=== PATIENT | female | born 1960 | race American Indian/Alaskan Native ===

== ENCOUNTER 2019-01-15 22:37 | Emergency (ER) | payer MEDICAID ==
[2019-01-15 22:46] VITALS: TEMP 97.9
--- NOTE | 2019-01-16 00:16 | C.PDOC ---
History Of Present Illness 58 year old female brought in via EMS from care home for substance ingestion. Patient was noted by care home staff to be taking some sort of medication. When questioned patient denies taking anything, any drug use, or drinking. She repo rts no complaints at this time, however, she appears very sleepy but arousable to voice. Time Seen by Provider: 01/15/19 22:41 Chief Complaint (Nursing): Substance Abuse History Per: Patient, EMS History/Exam Limitations: no limitations Onset/Duration Of Symptoms: Hrs Current Symptoms Are (Timing): Still Present Modifying Factor(s): Other (Substance abuse) Recent travel outside of the [place]: No Past Medical History Reviewed: Historical Data, Nursing Documentation, Vital Signs Vital Signs: Last Vital Signs Temp 97.9 F 01/15/19 22:45 Pulse 50 L 01/15/19 22:45 Resp BP 128/83 01/15/19 22:45 Pulse Ox 93 L 01/15/19 22:45 Family History: States: Unknown Family Hx - Social History Hx Alcohol Use: Yes Hx Substance Use: Yes Review Of Systems Constitutional: Negative for: Fever, Chills Cardiovascular: Negative for: Chest Pain, Palpitations Respiratory: Negative for: Cough, Shortness of Breath Gastrointestinal: Negative for: Nausea, Vomiting Genitourinary: Negative for: Dysuria, Hematuria Musculoskeletal: Negative for: Back Pain Skin: Negative for: Rash Neurological: Negative for: Weakness, Numbness Physical Exam - Physical Exam Appears: Non-toxic, Other (Sleepy) Skin: Normal Color, Warm Head: Atraumatic, Normacephalic Eye(s): bilateral: Other (4mm equally reactive bilaterally) Oral Mucosa: Moist Neck: Normal, Supple Chest: Symmetrical, No Tenderness Cardiovascular: Rhythm Regular Respiratory: Normal Breath Sounds, No Rales, No Rhonchi, No Wheezing Gastrointestinal/Abdominal: Soft, No Tenderness Neurological/Psych: Other (Sleepy but arousable to voice, slurred speech, unable to assess if oriented since she does not answer all questions) ED Course And Treatment - Laboratory Results Result Diagrams: 01/16/19 00:34 01/16/19 00:34 O2 Sat by Pulse Oximetry: 93 (room air) Medical Decision Making Medical Decision Making: Plan: * Blood work * Urinalysis 0415- Patient now AAOx3, ambulatory, refusing any further testing (urinalysis). Admits to EtOH use tonight but denies any other drug use, denies taking any medication as well. Patient stable for discharge at this time. Disposition - Disposition Disposition: HOME/ ROUTINE Disposition Time: 04:15 Condition: STABLE Additional Instructions: SHANEKA PASCUAL, thank you for letting us take care of you today. Your provider was Bonnie Koch MD and you were treated for SUBSTANCE ABUSE. The emergency medical care you received today was directed at your acute symptoms. If you were prescribed any medication, please fill it and take as directed. It may take several days for your symptoms to resolve. Return to the Emergency Department if your symptoms worsen, do not improve, or if you have any other pro blems. Please contact your doctor or call one of the physicians/clinics you have been referred to that are listed on the Patient Visit Information form that is included in your discharge packet. Bring any paperwork you were given at discharge with you along with any medications you are taking to your follow up visit. Our treatment cannot replace ongoing medical care by a primary care provider outside of the emergency department. Thank you for allowing the [facility] team to be part of your care today. If you had an X-Ray or CT scan: A Radiologist will review the ED reading if any change in treatment is needed we will contact you. If you had a blood, urine, or wound culture: It will take several days for the results, if any change in treatment is needed we will contact you. If you had an STI test: It will take 48 hours for the results. Please call after 1 week if you have not heard back. Instructions: Alcohol Abuse and Alcoholism (DC) Forms: [employer] (Japanese) - Clinical Impression Clinical Impression: Alcohol intoxication - Scribe Statement The provider has reviewed the documentation as recorded by the Scribe Milind Middleton All medical record entries made by the Scribe were at my direction and personally dictated by me. I have reviewed the chart and agree that the record accurately reflects my personal performance of the history, physical exam, medical decision making, and the department course for this patient. I have also personally directed, reviewed, and agree with the discharge instructions and disposition.
[2019-01-16 00:39] LABS: BASO # 0.1 K/uL (0.0-0.2); BASO % 1.2 % (0.0-2.0); EOS # 0.1 K/uL (0.0-0.7); EOS % 0.8 % (0.0-4.0); HEMOGLOBIN 12.1 g/dL (11.0-16.0); LYMPH # 1.6 K/uL (1.0-4.3); LYMPH % 16.9 % (20.0-40.0); MEAN CELL VOLUME 81.5 fL (81.0-99.0); MEAN CORPUSCULAR HEMOGLOBIN 26.5 pg (27.0-31.0); MEAN CORPUSCULAR HGB CONC 32.5 g/dL (33.0-37.0); MEAN PLATELET VOLUME 7.9 fL (7.2-11.7); MONO # 0.4 K/uL (0.0-0.8); MONO % 4.3 % (0.0-10.0); NEUT # 7.1 K/uL (1.8-7.0); NEUT % 76.8 % (50.0-75.0); NRBC % 0.1 % (0.0-2.0); RBC 4.56 Mil/uL (3.80-5.20); RED CELL DISTRIBUTION WIDTH 16.2 % (11.5-14.5); WHITE BLOOD COUNT 9.2 K/uL (4.8-10.8)
[2019-01-16 00:50] LABS: ALB/GLOB RATIO 1.8 (1.0-2.1); ALBUMIN 4.5 g/dL (3.5-5.0); AST/SGOT 19 U/L (14-36); BLOOD UREA NITROGEN 9 mg/dL (7-17); CALCIUM 9.2 mg/dl (8.6-10.4); GFR NON-AFRICAN AMERICAN > 60
[2019-01-16 00:51] LABS: ALT/SGPT < 6 U/L (9-52)
[2019-01-16 03:56] VITALS: BP 118/74; PULSE 60; RESP 14
[2019-01-16 06:05] VITALS: O2SAT 93
== END 2019-01-16 05:06 | disposition home or self-care (01) ==
LOC: C.ER 22:37
DX: F10.129 Alcohol abuse with intoxication, unspecified (principal)